=== PATIENT | female | born 1990 | race Caucasian/White ===

== ENCOUNTER 2020-09-27 12:03 | Emergency (ER) | payer SELFPAY ==
[~2020-09-27] VITALS: Ht 167.7 cm; Wt 72.5 kg
[2020-09-27 12:37] LABS: BASOPHILS # (AUTO) 0.1 10^3/uL (0.0-0.1); BASOPHILS % (AUTO) 0 % (0-10); EOSINOPHILS # (AUTO) 0.1 10^3/uL (0.0-0.3); EOSINOPHILS % (AUTO) 1 % (0-10); HEMATOCRIT 44 % (35-52); HEMOGLOBIN 14.7 g/dL (11.5-16.0); LYMPHOCYTES # (AUTO) 1.8 10^3/uL (1.0-4.0); LYMPHOCYTES % (AUTO) 13 % (12-44); MEAN CORPUSCULAR HEMOGLOBIN 32 pg (25-34); MEAN CORPUSCULAR HGB CONC 34 g/dL (32-36); MEAN CORPUSCULAR VOLUME 94 fL (80-99); MEAN PLATELET VOLUME 9.3 fL (9.0-12.2); MONOCYTES # (AUTO) 0.5 10^3/uL (0.0-1.0); MONOCYTES % (AUTO) 4 % (0-12); NEUTROPHILS # (AUTO) 11.3 10^3/uL (1.8-7.8); NEUTROPHILS % (AUTO) 81 % (42-75); PLATELET COUNT 377 10^3/uL (130-400); WHITE BLOOD COUNT 13.9 10^3/uL (4.3-11.0)
[2020-09-27] MEDS ORDERED: fentaNYL INJECTION 100 MCG/2 ML AMP IVP ONE ×2 (12:45→15:15)
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
[2020-09-27] MEDS ORDERED: HOLD METFORMIN - RECEIVED CONTRAST 20 ML VIAL IV SCH (13:15)
[2020-09-27] MEDS ORDERED: NS 100 ML (IVPB) BAG IV ONE (13:15)
[2020-09-27] MEDS ORDERED: IOHEXOL 350 MG/ML 100 ML (OMNIPAQUE 350) VIAL IV ONE (13:15)
[2020-09-27 13:18] LABS: ALANINE AMINOTRANSFERASE 37 U/L (0-55); ALBUMIN 4.5 GM/DL (3.2-4.5); ALKALINE PHOSPHATASE 78 U/L (40-136); BILIRUBIN,TOTAL 0.4 MG/DL (0.1-1.0); BUN/CREATININE RATIO 10; CARBON DIOXIDE 31 MMOL/L (21-32); CHLORIDE 106 MMOL/L (98-107); CREATININE SERUM 0.88 MG/DL (0.60-1.30); GFR ESTIMATED > 60; GLUCOSE 78 MG/DL (70-105); POTASSIUM 3.8 MMOL/L (3.6-5.0); SODIUM 138 MMOL/L (135-145); TOTAL PROTEIN 7.8 GM/DL (6.4-8.2)
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
[2020-09-27] MEDS ORDERED: ACHD5005 PO (15:21)
[2020-09-27 15:33] VITALS: BP 129/69
== END 2020-09-27 15:33 | disposition home or self-care (01) ==
LOC: ER 12:07
DX: R07.89 Other chest pain (principal); V89.2XXA Person injured in unspecified motor-vehicle accident, traffic, initial encounter
CPT/HCPCS: 36415; 71260; 80053; 84703; 85025; 93005

== ENCOUNTER 2021-03-14 12:11 | Emergency (ER) | payer SELFPAY ==
[~2021-03-14] VITALS: Ht 167.7 cm; Wt 86.0 kg
[~2021-03-14 12:11] MED LIST: ACHD5005 PO
[2021-03-14 12:19] VITALS: BP 130/69
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
== END 2021-03-14 13:18 | disposition home or self-care (01) ==
LOC: EDUNIT# 12:11 → ER 12:13
DX: M25.572 Pain in left ankle and joints of left foot (principal); F17.210 Nicotine dependence, cigarettes, uncomplicated
CPT/HCPCS: 99283

== ENCOUNTER 2021-04-25 13:01 | Emergency (ER) | payer SELFPAY ==
[~2021-04-25] VITALS: Ht 167.7 cm; Wt 88.5 kg
[2021-04-25 13:05] VITALS: BP 151/105
--- NOTE | 2021-04-25 13:26 | ED General ---
General Chief Complaint: Head/Cervical Problems Stated Complaint: MIGRAINE Source of Information: Patient Exam Limitations: No Limitations (NEGRA HORNER APRN) History of Present Illness Date Seen by Provider: Apr 25, 2021 Time Seen by Provider: 13:27 Initial Comments ER with reports of chronic headaches no worse than usual no fevers no chills no cough no shortness of breath. She also states that she has had 70 pound weight gain since last May and is worried she may be hypothyroid would like her thyroid levels checked. She just moved here from [place] and does not have primary care provider. Timing/Duration: Other Severity: Moderate Associated Systoms: Denies Symptoms (NEGRA HORNER APRN) Allergies and Home Medications Allergies Coded Allergies: No Known Drug Allergies (Unverified , 09/27/20) Home Medications Hydrocodone/Acetaminophen 1 Each Tablet, 1 EACH PO Q6H PRN for PAIN-MODERATE (5- 7) Prescribed by: NADINE MURRAY on 09/27/20 1521 Patient Home Medication List Home Medication List Reviewed: Yes (NEGRA HORNER APRN) Review of Systems Review of Systems Constitutional: see HPI, malaise EENTM: see HPI Respiratory: no symptoms reported Cardiovascular: no symptoms reported Genitourinary: no symptoms reported Musculoskeletal: no symptoms reported; No joint swelling, No muscle pain Skin: no symptoms reported Psychiatric/Neurological: No Symptoms Reported Hematologic/Lymphatic: No Symptoms Reported Immunological/Allergic: no symptoms reported (NEGRA HORNER APRN) Past Esuylpk-Pbokmk-Qouxcc Hx Seasonal Allergies Seasonal Allergies: No (NEGRA HORNER APRN) Past Medical History Surgeries: Yes ([place]) Respiratory: No Cardiac: No Neurological: No Genitourinary: No Gastrointestinal: No Musculoskeletal: No Endocrine: No HEENT: No Cancer: No Psychosocial: No Integumentary: No Blood Disorders: No (NEGRA HORNER APRN) Physical Exam Vital Signs Vital Signs - First Documented 04/25/21 13:05 Temp 37.1 Pulse 99 Resp 18 B/P (MAP) 151/105 (120) (NADINE HERNADZE MD) Vital Signs Capillary Refill : (NEGRA HORNER APRN) Height, Weight, BMI Height: '" Weight: lbs. oz. kg; 30.00 BMI Method: General Appearance: No Apparent Distress, WD/WN Eyes: Bilateral Eye Normal Inspection, Bilateral Eye PERRL, Bilateral Eye EOMI HEENT: PERRL/EOMI, TMs Normal Neck: Full Range of Motion, Normal Inspection Respiratory: No Accessory Muscle Use Cardiovascular: Regular Rate, Rhythm, Normal Peripheral Pulses Gastrointestinal: Normal Bowel Sounds, Non Tender, Soft Extremity: Normal Capillary Refill, Normal Inspection Neurologic/Psychiatric: Alert, Oriented x3 Skin: Normal Color, Warm/Dry (NEGRA HORNER APRN) Progress/Results/Core Measures Suspected Sepsis SIRS Temperature: Pulse: Respiratory Rate: Laboratory Tests 04/25/21 13:43: Blood Pressure / Mean: Laboratory Tests 04/25/21 13:43: (NEGRA HORNER APRN) Results/Orders Lab Results Laboratory Tests Test 04/25/21 13:43 Range/Units White Blood Count 9.5 4.3-11.0 10^3/uL Red Blood Count 4.63 3.80-5.11 10^6/uL Hemoglobin 14.9 11.5-16.0 g/dL Hematocrit 43 35-52 % Mean Corpuscular Volume 93 80-99 fL Mean Corpuscular Hemoglobin 32 25-34 pg Mean Corpuscular Hemoglobin Concent 35 32-36 g/dL Red Cell Distribution Width 13.5 10.0-14.5 % Platelet Count 323 130-400 10^3/uL Mean Platelet Volume 9.9 9.0-12.2 fL Immature Granulocyte % (Auto) 0 % Neutrophils (%) (Auto) 71 42-75 % Lymphocytes (%) (Auto) 20 12-44 % Monocytes (%) (Auto) 6 0-12 % Eosinophils (%) (Auto) 3 0-10 % Basophils (%) (Auto) 1 0-10 % Neutrophils # (Auto) 6.7 1.8-7.8 10^3/uL Lymphocytes # (Auto) 1.9 1.0-4.0 10^3/uL Monocytes # (Auto) 0.6 0.0-1.0 10^3/uL Eosinophils # (Auto) 0.3 0.0-0.3 10^3/uL Basophils # (Auto) 0.1 0.0-0.1 10^3/uL Immature Granulocyte # (Auto) 0.0 0.0-0.1 10^3/uL Thyroid Stimulating Hormone (TSH) 1.34 0.35-4.94 UIU/ML Free Thyroxine 1.02 0.70-1.48 NG/DL Serum Test, Qualitative NEGATIVE NEGATIVE (NADINE HERNADEZ MD) Vital Signs/I&O 04/25/21 13:05 Temp 37.1 Pulse 99 Resp 18 B/P (MAP) 151/105 (120) (NADINE HERNADEZ MD) Vital Signs/I&O Capillary Refill : (NEGRA HORNER APRN) Departure Impression Primary Impression: Chronic headaches Additional Impression: General malaise Disposition: HOME, SELF-CARE Condition: Stable Departure-Patient Inst. Decision time for Depature: 13:30 (NEGRA HORNER APRN) Referrals: NO,LOCAL PHYSICIAN (PCP/Family) Primary Care Physician Patient Instructions: NO INSTRUCTIONS GIVEN Add. Discharge Instructions: 1. Return to ER for any concerns 2. [facility] as a walk-in clinic for any future nonemergency needs. Otherwise your appointment is with LARS Martin at [facility] on May 10 at 12 PM. Your lab results from today will be faxed to them when they are resulted All discharge instructions reviewed with patient and/or family. Voiced understanding. Work/School Note: Work Release Form Date Seen in the Emergency Department: Apr 25, 2021 Return to Work: Apr 26, 2021 ATTENDING PHYSICIAN NOTE: I was physically present as attending physician in the emergency department during the care of this patient, but I was not directly involved in the decision making or delivery of care for this patient. (NADINE HERNADEZ MD) NEGRA HORNER APRN Apr 25, 2021 13:26 NADINE HERNADEZ MD Apr 25, 2021 20:38
[2021-04-25 13:51] LABS: BASOPHILS # (AUTO) 0.1 10^3/uL (0.0-0.1); BASOPHILS % (AUTO) 1 % (0-10); EOSINOPHILS # (AUTO) 0.3 10^3/uL (0.0-0.3); EOSINOPHILS % (AUTO) 3 % (0-10); HEMATOCRIT 43 % (35-52); HEMOGLOBIN 14.9 g/dL (11.5-16.0); LYMPHOCYTES # (AUTO) 1.9 10^3/uL (1.0-4.0); LYMPHOCYTES % (AUTO) 20 % (12-44); MEAN CORPUSCULAR HEMOGLOBIN 32 pg (25-34); MEAN CORPUSCULAR HGB CONC 35 g/dL (32-36); MEAN CORPUSCULAR VOLUME 93 fL (80-99); MEAN PLATELET VOLUME 9.9 fL (9.0-12.2); MONOCYTES # (AUTO) 0.6 10^3/uL (0.0-1.0); MONOCYTES % (AUTO) 6 % (0-12); NEUTROPHILS # (AUTO) 6.7 10^3/uL (1.8-7.8); NEUTROPHILS % (AUTO) 71 % (42-75); PLATELET COUNT 323 10^3/uL (130-400); WHITE BLOOD COUNT 9.5 10^3/uL (4.3-11.0)
[2021-04-25 14:27] LABS: FREE T4 (FREE THYROXINE) 1.02 NG/DL (0.70-1.48)
== END 2021-04-25 13:45 | disposition home or self-care (01) ==
LOC: EDUNIT# 13:01 → ER 13:04
DX: R51.9 Headache, unspecified (principal); R53.81 Other malaise
CPT/HCPCS: 36415; 84439; 84443; 84703; 85025

== ENCOUNTER 2022-01-30 10:23 | Emergency (ER) | payer SELFPAY ==
[~2022-01-30] VITALS: Ht 165 cm; Wt 77.0 kg
[2022-01-30 11:44] LABS: BILIRUBIN,URINE NEGATIVE (NEGATIVE); CLARITY,URINE CLEAR; COLOR,URINE YELLOW; GLUCOSE, URINE (UA) NEGATIVE (NEGATIVE); KETONES,URINE NEGATIVE (NEGATIVE); LEUKOCYTE ESTERASE ,URINE NEGATIVE (NEGATIVE); NITRITE,URINE NEGATIVE (NEGATIVE); PROTEIN,URINE NEGATIVE (NEGATIVE)
[2022-01-30] MEDS ORDERED: KETOROLAC 30 MG/ML VIAL IVP ONE (11:45)
--- NOTE | 2022-01-30 11:54 | ED GU-Female ---
General Chief Complaint: - Reproductive Stated Complaint: ABD PAIN Nursing Triage Note: Patient ambulatory to ER with c/o lower abdominal pain with urinary frequency and urgency. Pt states this began two weeks ago and got worse while camping. Source: patient Exam Limitations: no limitations History of Present Illness Date Seen by Provider: January 30, 2022 Time Seen by Provider: 11:44 Initial Comments Patient is a 31-year-old female who presents the ED with urinary symptoms, abdominal pain and left flank pain. Symptoms started about a week and a half ago. She states she went on a camping trip. Started having some burning with urination notable before urination and after. Denies frequent urination. No vaginal bleeding or vaginal discharge. Last menstrual cycle a month ago. patient Is been having intermittent sharp pain in her lower abdomen bilateral. This pain became worse this morning when she woke up and remian constant. Rates pain 9 out 10. Patient rates pain 10 out of 10. No history of previous abdominal surgery. No vaginal discharge or concern for std. Denies taking any medication at home. History of UTIs in the past however she is concerned for kidney infection. She states she has had intermittent vomiting without fever. No diarrhea, chest pain, cough, shortness of breath, headache, dizziness. Allergies and Home Medications Allergies Coded Allergies: No Known Drug Allergies (Unverified , 09/27/20) Patient Home Medication List Home Medication List Reviewed: Yes Hydrocodone/Acetaminophen (Hydrocodone-Acetamin 5-325 mg) 1 Each Tablet, 1 EACH PO Q6H PRN for PAIN-MODERATE (5-7) Prescribed by: NADINE MURRAY on 09/27/20 1521 Review of Systems Review of Systems Constitutional: No chills, No diaphoresis, No fever, No malaise, No weakness EENTM: No hearing loss, No double vision, No vision loss, No hoarseness, No mouth pain, No mouth swelling Respiratory: No cough, No dyspnea on exertion, No hemoptysis, No orthopnea, No short of breath Cardiovascular: No chest pain, No edema Gastrointestinal: abdominal pain; No diarrhea; nausea, vomiting Genitourinary: burning Musculoskeletal: back pain; No joint pain Past Mmllfxo-Vejblt-Tqsgnx Hx Patient Social History Tobacco Use?: No Smoking Status: Never a Smoker Smokeless Tobacco Frequency: Never a User Use of E-Cig and/or Vaping dev: No Use of E-Cig and/or Vaping Moises: Never a User Substance use?: No Alcohol Use?: No Pt feels they are or have been: No Immunizations Up To Date Influenza Vaccine Up-to-Date: No; Not Current Seasonal Allergies Seasonal Allergies: No Past Medical History Surgery/Hospitalization HX: LEEP procedure Surgeries: Yes (LEEP) Respiratory: No Cardiac: No Neurological: No Last Menstrual Period: Jan 02, 2022 Genitourinary: No Gastrointestinal: No Musculoskeletal: No Endocrine: No HEENT: No Cancer: No Psychosocial: No Integumentary: No Blood Disorders: No Physical Exam Vital Signs Vital Signs - First Documented 01/30/22 11:01 Temp 35.5 Pulse 104 Resp 18 B/P (MAP) 137/84 (101) Pulse Ox 100 O2 Delivery Room Air Capillary Refill : Less Than 3 Seconds Height, Weight, BMI Height: '" Weight: lbs. oz. kg; 28.00 BMI Method: General Appearance: No WD/WN, No no apparent distress HEENT: No PERRL/EOMI, No normal ENT inspection, No TMs normal, No pharynx normal Neck: No non-tender, No full range of motion, No normal inspection Cardiovascular: No regular rate, rhythm, No no edema, No no gallop, No no JVD Respiratory: No chest non-tender, No lungs clear, No normal breath sounds Gastrointestinal: normal bowel sounds, soft, no organomegaly, no pulsatile mass, tenderness (biLateral lower abdominal tenderness, left flank tenderness.) Back: normal inspection, CVA tenderness (L) Extremities: normal range of motion, non-tender, normal inspection Progress/Results/Core Measures Suspected Sepsis SIRS Temperature: Pulse: 104 Respiratory Rate: 18 Laboratory Tests 01/30/22 11:55: White Blood Count 13.8H Blood Pressure 137 /84 Mean: 101 Laboratory Tests 01/30/22 11:55: Creatinine 0.81, Platelet Count 333, Total Bilirubin 0.5 Results/Orders Lab Results Laboratory Tests Test 01/30/22 11:09 01/30/22 11:55 Range/Units Urine Color YELLOW Urine Clarity CLEAR Urine pH 7.0 5-9 Urine Specific [place] 1.010 L 1.016-1.022 Urine Protein NEGATIVE NEGATIVE Urine Glucose (UA) NEGATIVE NEGATIVE Urine Ketones NEGATIVE NEGATIVE Urine Nitrite NEGATIVE NEGATIVE Urine Bilirubin NEGATIVE NEGATIVE Urine Urobilinogen 0.2 < = 1.0 MG/DL Urine Leukocyte Esterase NEGATIVE NEGATIVE Urine RBC (Auto) TRACE-I H NEGATIVE Urine RBC RARE /HPF Urine WBC RARE /HPF Urine Squamous Epithelial Cells 2-5 /HPF Urine Crystals NONE /LPF Urine Bacteria TRACE /HPF Urine Casts NONE /LPF Urine Mucus NEGATIVE /LPF Urine Culture Indicated NO Urine Test POSITIVE NEGATIVE White Blood Count 13.8 H 4.3-11.0 10^3/uL Red Blood Count 5.55 H 3.80-5.11 10^6/uL Hemoglobin 16.9 H 11.5-16.0 g/dL Hematocrit 49 35-52 % Mean Corpuscular Volume 89 80-99 fL Mean Corpuscular Hemoglobin 31 25-34 pg Mean Corpuscular Hemoglobin Concent 34 32-36 g/dL Red Cell Distribution Width 14.1 10.0-14.5 % Platelet Count 333 130-400 10^3/uL Mean Platelet Volume 9.9 9.0-12.2 fL Immature Granulocyte % (Auto) 0 % Neutrophils (%) (Auto) 82 H 42-75 % Lymphocytes (%) (Auto) 11 L 12-44 % Monocytes (%) (Auto) 5 0-12 % Eosinophils (%) (Auto) 1 0-10 % Basophils (%) (Auto) 1 0-10 % Neutrophils # (Auto) 11.4 H 1.8-7.8 10^3/uL Lymphocytes # (Auto) 1.6 1.0-4.0 10^3/uL Monocytes # (Auto) 0.7 0.0-1.0 10^3/uL Eosinophils # (Auto) 0.1 0.0-0.3 10^3/uL Basophils # (Auto) 0.1 0.0-0.1 10^3/uL Immature Granulocyte # (Auto) 0.1 0.0-0.1 10^3/uL Sodium Level 137 135-145 MMOL/L Potassium Level 4.0 3.6-5.0 MMOL/L Chloride Level 102 98-107 MMOL/L Carbon Dioxide Level 23 21-32 MMOL/L Anion Gap 12 5-14 MMOL/L Blood Urea Nitrogen 7 7-18 MG/DL Creatinine 0.81 0.60-1.30 MG/DL Estimat Glomerular Filtration Rate 99 BUN/Creatinine Ratio 9 Glucose Level 99 70-105 MG/DL Calcium Level 10.1 8.5-10.1 MG/DL Corrected Calcium 8.5-10.1 MG/DL Total Bilirubin 0.5 0.1-1.0 MG/DL Aspartate Amino Transf (AST/SGOT) 43 H 5-34 U/L Alanine Aminotransferase (ALT/SGPT) 81 H 0-55 U/L Alkaline Phosphatase 81 40-136 U/L Total Protein 8.5 H 6.4-8.2 GM/DL Albumin 5.1 H 3.2-4.5 GM/DL Lipase 21 8-78 U/L Human Chorionic Gonadotropin, Quant 18530 H <5 MIU/ML My Orders Orders - KELLY BOUCHER Ua Culture If Indicated (01/30/22 11:36) Hcg,Qualitative Urine (01/30/22 11:36) Cbc With Automated Diff (01/30/22 11:43) Comprehensive Metabolic Panel (01/30/22 11:43) Lipase (01/30/22 11:43) Ketorolac Injection (Toradol Injection) (01/30/22 11:45) Us Ob<14 Wks Sngle W/Transvag (01/30/22 12:32) Abo Rh Type (01/30/22 12:38) Hcg,Quantitative (01/30/22 12:38) Neis Sammy Dna Urine Test (01/30/22 12:48) Chlamydia Trachomatis Urine (01/30/22 12:48) Acetaminophen Tablet (Tylenol Tablet) (01/30/22 14:30) Fentanyl Inj (Sublimaze Injection) (01/30/22 14:47) Medications Given in ED Current Medications Medications Dose Ordered Sig/Delmi Route Start Time Stop Time Status Last Admin Dose Admin Acetaminophen 1,000 mg ONCE ONCE PO 01/30/22 14:30 01/30/22 14:31 DC 01/30/22 14:33 1,000 MG Ketorolac Tromethamine 30 mg ONCE ONCE IVP 01/30/22 11:45 01/30/22 11:46 DC 01/30/22 11:55 30 MG Vital Signs/I&O 01/30/22 01/30/22 11:01 15:16 Temp 35.5 Pulse 104 72 Resp 18 16 B/P (MAP) 137/84 (101) 140/67 Pulse Ox 100 97 O2 Delivery Room Air Room Air Capillary Refill : Less Than 3 Seconds Blood Pressure Mean: 101 Departure Communication (PCP) Patient presents ED with lower abdominal discomfort and left flank pain. She states she has urinary symptoms right before urination and after described as more burning. No vomiting or diarrhea. Patient eventually mentioned that she had a positive test at home concern for possible . She was positive here. Urinalysis without evidence of infection. Denies any vaginal bleeding or vaginal discharge. B positive ABO. Refused pelvic exam. Discussed potential pelvic infection could be result of her symptoms especially with a urinary since her urine is normal. Patient with stable blood pressure. No history of diabetes or HTN. Slight elevated white blood count and hemoglobin. Normal kidney function. Slight elevated liver enzymes. She has no right upper quadrant or right lower quadrant tenderness. More of her pain appears to be in her left upper quadrant during palpation. She had a normal lipase. No chest pain, shortness of breath or cough. Patient was initially given Toradol before her test return and before she told she had a positive test after I asked her if she was initially. Patient beta quant 19,000. Ultrasound shows gestational sac without pole. Possible blighted OVUM versus early . Will need further serial beta quant's and ultrasound. Patient scheduled follow-up with her [employer] in [place] next week. She travels back and forth. Patient was requesting stronger pain medication. Discussed risk with narcotics. She acknowledges. She was given fentanyl here. Pain improved. Patient is recommend prenatals. She is G2, P1. Not concern for sexual transmitted infection but urine is currently pending for chlamydia and gonorrhea. Once again reevaluation of the abdomen without any right lower quadrant or right upper quadrant tenderness. Appears to be more on the left side of her abdomen but much improved after pain medication. She did have a left ovarian cyst noted on ultrasound. If any worsening symptoms strongly recommend returning back to ED. She is scheduled to return to [place] on . Impression Primary Impression: Disposition: HOME, SELF-CARE Condition: Stable Departure-Patient Inst. Decision time for Depature: 15:07 Referrals: NO,LOCAL PHYSICIAN (PCP/Family) Primary Care Physician Patient Instructions: Care Add. Discharge Instructions: Recommend following up with your [employer]. If any worsening pain to return back to ED for further evaluation. Tylenol for pain. Recommend prenatals. Beta quant 19 284 All discharge instructions reviewed with patient and/or family. Voiced understanding. KELLY BOUCHER January 30, 2022 11:54
[2022-01-30 12:01] LABS: BASOPHILS # (AUTO) 0.1 10^3/uL (0.0-0.1); BASOPHILS % (AUTO) 1 % (0-10); EOSINOPHILS # (AUTO) 0.1 10^3/uL (0.0-0.3); EOSINOPHILS % (AUTO) 1 % (0-10); HEMATOCRIT 49 % (35-52); HEMOGLOBIN 16.9 g/dL (11.5-16.0); LYMPHOCYTES # (AUTO) 1.6 10^3/uL (1.0-4.0); LYMPHOCYTES % (AUTO) 11 % (12-44); MEAN CORPUSCULAR HEMOGLOBIN 31 pg (25-34); MEAN CORPUSCULAR HGB CONC 34 g/dL (32-36); MEAN CORPUSCULAR VOLUME 89 fL (80-99); MEAN PLATELET VOLUME 9.9 fL (9.0-12.2); MONOCYTES # (AUTO) 0.7 10^3/uL (0.0-1.0); MONOCYTES % (AUTO) 5 % (0-12); NEUTROPHILS # (AUTO) 11.4 10^3/uL (1.8-7.8); NEUTROPHILS % (AUTO) 82 % (42-75); PLATELET COUNT 333 10^3/uL (130-400); WHITE BLOOD COUNT 13.8 10^3/uL (4.3-11.0)
[2022-01-30 12:13] LABS: BACTERIA,URINE TRACE /HPF; RBC,URINE RARE /HPF; WBC,URINE RARE /HPF
[2022-01-30 12:26] LABS: ALBUMIN 5.1 GM/DL (3.2-4.5); CHLORIDE 102 MMOL/L (98-107); SODIUM 137 MMOL/L (135-145)
[2022-01-30 12:27] LABS: CALCIUM 10.1 MG/DL (8.5-10.1)
[2022-01-30 12:28] LABS: GLUCOSE 99 MG/DL (70-105); TOTAL PROTEIN 8.5 GM/DL (6.4-8.2)
[2022-01-30 12:29] LABS: CARBON DIOXIDE 23 MMOL/L (21-32)
[2022-01-30 12:30] LABS: BILIRUBIN,TOTAL 0.5 MG/DL (0.1-1.0)
[2022-01-30] MEDS ORDERED: IOHEXOL 350 MG/ML 100 ML (OMNIPAQUE 350) VIAL IV ONE (12:30)
[2022-01-30] MEDS ORDERED: HOLD METFORMIN - RECEIVED CONTRAST 20 ML VIAL IV SCH (12:30)
[2022-01-30] MEDS ORDERED: NS 100 ML (IVPB) BAG IV ONE (12:30)
[2022-01-30] MEDS ORDERED: CATHETER FLUSH 10 ML SYR IV PRN (12:30)
[2022-01-30 12:32] LABS: ALKALINE PHOSPHATASE 81 U/L (40-136); CREATININE SERUM 0.81 MG/DL (0.60-1.30); GFR ESTIMATED 99
[2022-01-30 12:33] LABS: BUN/CREATININE RATIO 9
[2022-01-30 12:35] LABS: ALANINE AMINOTRANSFERASE 81 U/L (0-55); LIPASE 21 U/L (8-78)
[2022-01-30] MEDS ORDERED: ACETAMINOPHEN 500 MG TAB (TYLENOL) PO ONE (14:30)
[2022-01-30] MEDS ORDERED: fentaNYL INJ 100 MCG/2 ML AMP IVP STA (14:47)
--- NOTE | 2022-01-30 14:52 | Diagnostic Imaging Report ---
INDICATION: Abdominal pain. FINDINGS: Uterus measures 7.2 x 4.7 x 5.3 cm. There is an intrauterine gestational sac present consistent with approximately 6 weeks 1 day gestation. The gestational sac is in the right aspect of the uterine fundus. Asymmetric location of the gestational sac may be owing to a uterine anomaly such as a septate or sub-septate uterus with a gestational sac located in the right-sided endometrium. There is no evidence of a pole within the gestational sac. There is a small amount of perigestational sac fluid measuring 2.4 x 0.4 x 1.1 cm suggestive of some perigestational sac hemorrhage. Adnexal evaluation demonstrates a left ovarian cystic lesion measuring 2.9 x 1.5 x 1.7 cm. No free fluid in the pelvis is seen. IMPRESSION: 1. 6 weeks 1 day intrauterine gestational sac without evidence of pole. While this could be owing to very early gestation, possibility of blighted ovum cannot be entirely excluded. Correlation with serial beta hCG levels and/or follow-up ultrasound would be recommended. There is a small perigestational sac hemorrhage present. 2. Left ovarian cyst. Dictated by: Dictated on workstation # [id number]
[2022-01-30 15:16] VITALS: BP 140/67
== END 2022-01-30 15:17 | disposition home or self-care (01) ==
LOC: EDUNIT# 10:23 → ER 10:25
DX: R10.31 Right lower quadrant pain (principal); R10.32 Left lower quadrant pain; R39.198 Other difficulties with micturition; Z32.01 Encounter for pregnancy test, result positive
CPT/HCPCS: 36415; 76801; 76817; 80053; 81000; 83690; 84702; 84703; 85025; 86900; 86901; 87491; 87591

== ENCOUNTER 2023-07-08 06:09 | Emergency (ER) | payer SELFPAY ==
[~2023-07-08] VITALS: Ht 167 cm; Wt 77.0 kg
[2023-07-08] MEDS ORDERED: HYDROcodone/ACETAMINOPHEN 5 MG/325 MG TABLET PO ONE (06:45)
[2023-07-08] MEDS ORDERED: KETOROLAC INJ 30 MG/ML VIAL IM STA (06:45)
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
[2023-07-08] MEDS ORDERED: IBUP-1780 PO (07:47)
[2023-07-08] MEDS ORDERED: ACHD5005 PO ×3 (07:47→18:40)
[2023-07-08] MEDS ORDERED: CYCL10TA25 PO (07:47)
[2023-07-08 08:20] VITALS: BP 152/83
== END 2023-07-08 08:20 | disposition home or self-care (01) ==
LOC: EDUNIT# 06:09 → ER 06:11
DX: S80.01XA Contusion of right knee, initial encounter (principal); V43.92XA Unspecified car occupant injured in collision with other type car in traffic accident, initial encounter; Y92.410 Unspecified street and highway as the place of occurrence of the external cause
CPT/HCPCS: 73562; 73700

== ENCOUNTER 2023-07-16 00:05 | Inpatient (IN) | payer SELFPAY ==
[~2023-07-16] VITALS: Ht 167.7 cm; Wt 88.3 kg
[~2023-07-16 00:05] MED LIST changes: +CYCL10TA25 PO; +IBUP-1780 PO
[2023-07-16 01:29] LABS: BASOPHILS # (AUTO) 0.1 10^3/uL (0.0-0.1); BASOPHILS % (AUTO) 0 % (0-10); EOSINOPHILS # (AUTO) 0.1 10^3/uL (0.0-0.3); EOSINOPHILS % (AUTO) 0 % (0-10); HEMATOCRIT 42 % (35-52); HEMOGLOBIN 14.6 g/dL (11.5-16.0); LYMPHOCYTES # (AUTO) 1.6 10^3/uL (1.0-4.0); LYMPHOCYTES % (AUTO) 8 % (12-44); MEAN CORPUSCULAR HEMOGLOBIN 32 pg (25-34); MEAN CORPUSCULAR HGB CONC 35 g/dL (32-36); MEAN CORPUSCULAR VOLUME 94 fL (80-99); MONOCYTES # (AUTO) 0.8 10^3/uL (0.0-1.0); MONOCYTES % (AUTO) 4 % (0-12); NEUTROPHILS # (AUTO) 17.2 10^3/uL (1.8-7.8); NEUTROPHILS % (AUTO) 87 % (42-75); PLATELET COUNT 341 10^3/uL (130-400); WHITE BLOOD COUNT 19.8 10^3/uL (4.3-11.0)
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
[2023-07-16 01:34] LABS: BACTERIA,URINE NEGATIVE /HPF; BILIRUBIN,URINE NEGATIVE (NEGATIVE); CLARITY,URINE CLEAR; COLOR,URINE YELLOW; GLUCOSE, URINE (UA) NEGATIVE (NEGATIVE); KETONES,URINE NEGATIVE (NEGATIVE); LEUKOCYTE ESTERASE ,URINE NEGATIVE (NEGATIVE); NITRITE,URINE NEGATIVE (NEGATIVE); PH,URINE 5.5 (5-9); PROTEIN,URINE NEGATIVE (NEGATIVE); SQUAMOUS EPITHELIAL CELL,UR 0-2 /HPF
[2023-07-16 01:40] LABS: AMPHETAMINE SCREEN, URINE NEGATIVE (NEGATIVE); BARBITURATE SCREEN URINE NEGATIVE (NEGATIVE); CANNABINOID SCREEN, URINE POSITIVE (NEGATIVE); COCAINE SCREEN URINE NEGATIVE (NEGATIVE); OPIATE SCREEN URINE POSITIVE (NEGATIVE)
[2023-07-16 01:41] LABS: METHADONE STAT NEGATIVE (NEGATIVE); OXYCODONE STAT NEGATIVE (NEGATIVE); PROPOXYPHENE STAT NEGATIVE (NEGATIVE); TRICYCLIC ANTIDEPRESSANTS SCRE NEGATIVE (NEGATIVE)
[2023-07-16 01:41] LABS: ALBUMIN 4.6 GM/DL (3.2-4.5); CHLORIDE 104 MMOL/L (98-107)
[2023-07-16 01:42] LABS: SODIUM 136 MMOL/L (135-145)
[2023-07-16 01:43] LABS: CALCIUM 9.5 MG/DL (8.5-10.1)
[2023-07-16 01:44] LABS: GLUCOSE 108 MG/DL (70-105); TOTAL PROTEIN 8.3 GM/DL (6.4-8.2)
[2023-07-16 01:45] LABS: CARBON DIOXIDE 19 MMOL/L (21-32)
[2023-07-16] MEDS ORDERED: KETOROLAC INJ 30 MG/ML VIAL IVP ONE (01:45)
[2023-07-16 01:46] LABS: BILIRUBIN,TOTAL 0.4 MG/DL (0.1-1.0)
[2023-07-16 01:47] LABS: ALKALINE PHOSPHATASE 90 U/L (40-136)
[2023-07-16 01:48] LABS: CREATININE SERUM 0.78 MG/DL (0.60-1.30); GFR ESTIMATED 103
[2023-07-16 01:49] LABS: BUN/CREATININE RATIO 12
[2023-07-16 01:50] LABS: ALANINE AMINOTRANSFERASE 91 U/L (0-55)
[2023-07-16 01:51] LABS: ERYTHROCYTE SEDIMENTATION RATE 23 MM/HR (0-20); LYMPHOCYTES % (MANUAL) 15 %; MONOCYTES % (MANUAL) 3 %; NEUTROPHILS % (MANUAL) 82 %; RBC MORPH NORMAL
[2023-07-16] MEDS ORDERED: PIPERACILLIN/Tazobactam 4.5 GM in NS (IVPB) 100 ML 100 ML IV ONE (02:00)
[2023-07-16] MEDS ORDERED: LACTATED RINGERS 1,000 ML 1,000 ML IV ONE (02:15)
[2023-07-16] MEDS: VANCOMYCIN INJECTION 1,000 MG in NS (IVPB) 250 ML 250 ML IV SCH ×2 (02:45→03:56)
[2023-07-16] MEDS ORDERED: fentaNYL INJECTION 100 MCG/2 ML VIAL IVP ONE (04:30)
[2023-07-16 05:39] VITALS: BP 135/67
[2023-07-16] MEDS: LACTATED RINGERS 1,000 ML 1,000 ML IV SCH ×4 (06:15→20:21)
[2023-07-16] MEDS ORDERED: ONDANSETRON INJECTION 4 MG/2 ML (SDV) IV PRN (06:15)
[2023-07-16] MEDS: fentaNYL INJECTION 100 MCG/2 ML VIAL IV PRN ×6 (06:24→22:11)
[2023-07-16] MEDS: ACETAMINOPHEN 500 MG TABLET PO PRN ×2 (07:34→13:01)
[2023-07-16] MEDS: KETOROLAC INJ 30 MG/ML VIAL IV PRN ×3 (07:34→20:20)
[2023-07-16] MEDS: PIPERACILLIN/Tazobactam 4.5 GM in NS (IVPB) 100 ML 100 ML IV SCH ×2 (07:35→15:43)
[2023-07-16] MEDS ORDERED: CATHETER FLUSH 10 ML SYR IVP PRN (07:45)
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
[2023-07-16 07:47] VITALS: BP 113/69
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
[2023-07-16 11:33] VITALS: BP 116/66
[2023-07-16] MEDS ORDERED: IBUP-1780 PO (11:56)
[2023-07-16] MEDS ORDERED: CYCL10TA25 PO (11:56)
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
[2023-07-16 15:32] VITALS: BP 129/72
[2023-07-16] MEDS: HYDROcodone/ACETAMINOPHEN 5 MG/325 MG TABLET PO PRN ×2 (16:21→22:05)
[2023-07-16] MEDS: VANCOMYCIN 1250 MG/NS 250 ML PREMIX IV SCH (17:13)
[2023-07-16 20:21] VITALS: BP 129/79
[2023-07-16 23:09] VITALS: BP 134/91
[2023-07-17] MEDS: PIPERACILLIN/Tazobactam 4.5 GM in NS (IVPB) 100 ML 100 ML IV SCH ×3 (01:44→17:39)
[2023-07-17] MEDS: LACTATED RINGERS 1,000 ML 1,000 ML IV SCH ×2 (03:16→16:05)
[2023-07-17] MEDS: HYDROcodone/ACETAMINOPHEN 5 MG/325 MG TABLET PO PRN (03:17)
[2023-07-17] MEDS: KETOROLAC INJ 30 MG/ML VIAL IV PRN (03:17)
[2023-07-17 03:43] VITALS: BP 128/89
[2023-07-17] MEDS: VANCOMYCIN 1250 MG/NS 250 ML PREMIX IV SCH ×2 (05:10→17:40)
[2023-07-17] MEDS: fentaNYL INJECTION 100 MCG/2 ML VIAL IV PRN ×5 (05:20→18:18)
[2023-07-17 05:56] LABS: BASOPHILS % (AUTO) 0 % (0-10); EOSINOPHILS # (AUTO) 0.1 10^3/uL (0.0-0.3); EOSINOPHILS % (AUTO) 2 % (0-10); HEMATOCRIT 36 % (35-52); HEMOGLOBIN 12.2 g/dL (11.5-16.0); LYMPHOCYTES # (AUTO) 2.4 10^3/uL (1.0-4.0); LYMPHOCYTES % (AUTO) 29 % (12-44); MEAN CORPUSCULAR HEMOGLOBIN 32 pg (25-34); MEAN CORPUSCULAR HGB CONC 34 g/dL (32-36); MEAN CORPUSCULAR VOLUME 95 fL (80-99); MEAN PLATELET VOLUME 10.1 fL (9.0-12.2); MONOCYTES # (AUTO) 0.4 10^3/uL (0.0-1.0); MONOCYTES % (AUTO) 5 % (0-12); NEUTROPHILS # (AUTO) 5.3 10^3/uL (1.8-7.8); NEUTROPHILS % (AUTO) 64 % (42-75); PLATELET COUNT 277 10^3/uL (130-400); WHITE BLOOD COUNT 8.3 10^3/uL (4.3-11.0)
[2023-07-17 06:11] LABS: ALBUMIN 3.5 GM/DL (3.2-4.5); BILIRUBIN,TOTAL 0.5 MG/DL (0.1-1.0); CALCIUM 8.3 MG/DL (8.5-10.1); CREATININE SERUM 0.79 MG/DL (0.60-1.30); POTASSIUM 3.6 MMOL/L (3.6-5.0)
[2023-07-17 07:36] VITALS: BP 129/86
[2023-07-17 11:21] VITALS: BP 133/83
[2023-07-17] MEDS ORDERED: HYDROcodone/ACETAMINOPHEN 10/325 TABLET PO PRN (11:45)
[2023-07-17] MEDS ORDERED: ACHYD1T PO (12:47)
--- NOTE | 2023-07-17 13:00 | Discharge Inst-Simple/Standard ---
Discharge Inst-Standard Discharge Medications New, Converted or Re-Newed RX: Transmitted to Pharmacy Patient Instructions/Follow Up Plan of Care/Instructions/FU: Please continue to take your medications as written. Please follow up with Dr Viera as scheduled to follow up this hospital stay. Activity as Tolerated: Yes Discharge Diet: No Restrictions Return to The Hospital For: Fever, worsening redness or drainage, pain, chest pain, shortness of breath, weakness, if you feel you are getting worse. VENANCIO SERVIN MD Jul 17, 2023 12:49
[2023-07-17] MEDS ORDERED: SULF-221 PO (13:01)
--- NOTE | 2023-07-17 13:01 | Diagnostic Imaging Report ---
PROCEDURE: US right lower extremity venous. TECHNIQUE: Multiple real-time grayscale images were obtained over the right lower extremity in various projections. Additional spectral analysis and color Doppler duplex images were also obtained. INDICATION: Right lower extremity injury with the right leg pain and edema. FINDINGS: There is no evidence of right lower extremity DVT. Right lower extremity deep venous system shows normal compressibility with normal response to augmentation and Valsalva. No fluid collection or mass is detected. IMPRESSION: No evidence of right lower extremity DVT. Dictated by: Dictated on workstation # [id number]
--- NOTE | 2023-07-17 13:05 | Discharge Summary ---
Diagnosis/Chief Complaint Date of Admission Jul 16, 2023 at 05:10 Date of Discharge Discharge Date: Jul 17, 2023 Admission Diagnosis Right knee infection Primary Care No,Local Physician Discharge Diagnosis (1) wound infection of right kne (2) Hematoma and contusion Status: Acute (3) Traumatic hematoma of right knee Status: Acute Discharge Summary Discharge Physical Exam Allergies: Coded Allergies: No Known Drug Allergies (Unverified , 09/27/20) Vitals & I&Os Vital Signs Date Time Temp Pulse Resp B/P (MAP) Pulse Ox O2 Delivery O2 Flow Rate FiO2 07/17/23 11:21 36.4 83 16 133/83 (100) 96 Room Air Hospital Course Labs (last 24 hrs) Laboratory Tests 07/17/23 05:25: White Blood Count 8.3, Red Blood Count 3.83, Hemoglobin 12.2, Hematocrit 36, Mean Corpuscular Volume 95, Mean Corpuscular Hemoglobin 32, Mean Corpuscular Hemoglobin Concent 34, Red Cell Distribution Width 13.8, Platelet Count 277, Mean Platelet Volume 10.1, Immature Granulocyte % (Auto) 1, Neutrophils (%) (Auto) 64, Lymphocytes (%) (Auto) 29, Monocytes (%) (Auto) 5, Eosinophils (%) (Auto) 2, Basophils (%) (Auto) 0, Neutrophils # (Auto) 5.3, Lymphocytes # (Auto) 2.4, Monocytes # (Auto) 0.4, Eosinophils # (Auto) 0.1, Basophils # (Auto) 0.0, Immature Granulocyte # (Auto) 0.0, Sodium Level 138, Potassium Level 3.6, Chloride Level 108H, Carbon Dioxide Level 21, Anion Gap 9, Blood Urea Nitrogen 11, Creatinine 0.79, Estimat Glomerular Filtration Rate 102, BUN/Creatinine Ratio 14, Glucose Level 108H, Calcium Level 8.3L, Corrected Calcium 8.7, Total Bilirubin 0.5, Aspartate Amino Transf (AST/SGOT) 45H, Alanine Aminotransferase (ALT/SGPT) 67H, Alkaline Phosphatase 72, Total Protein 6.0L, Albumin 3.5 Patient resulted labs reviewed. Pending Labs Laboratory Tests 07/17/23 05:25: White Blood Count 8.3, Red Blood Count 3.83, Hemoglobin 12.2, Hematocrit 36, Mean Corpuscular Volume 95, Mean Corpuscular Hemoglobin 32, Mean Corpuscular Hemoglobin Concent 34, Red Cell Distribution Width 13.8, Platelet Count 277, Mean Platelet Volume 10.1, Immature Granulocyte % (Auto) 1, Neutrophils (%) (Auto) 64, Lymphocytes (%) (Auto) 29, Monocytes (%) (Auto) 5, Eosinophils (%) (Auto) 2, Basophils (%) (Auto) 0, Neutrophils # (Auto) 5.3, Lymphocytes # (Auto) 2.4, Monocytes # (Auto) 0.4, Eosinophils # (Auto) 0.1, Basophils # (Auto) 0.0, Immature Granulocyte # (Auto) 0.0, Sodium Level 138, Potassium Level 3.6, Chloride Level 108, Carbon Dioxide Level 21, Anion Gap 9, Blood Urea Nitrogen 11, Creatinine 0.79, Estimat Glomerular Filtration Rate 102, BUN/Creatinine Ratio 14, Glucose Level 108, Calcium Level 8.3, Corrected Calcium 8.7, Total Bilirubin 0.5, Aspartate Amino Transf (AST/SGOT) 45, Alanine Aminotransferase (ALT/SGPT) 67, Alkaline Phosphatase 72, Total Protein 6.0, Albumin 3.5 Imaging: Reviewed Imaging Report Discharge Home Medications: Active Scripts Active Bactrim Ds Tablet (Sulfamethoxazole/Trimethoprim) 800 Mg-160 Mg Tablet 1 Each PO BID HYDROcodone/APAP 10/325 TABLET (Acetaminophen/Hydrocodone Bitart) 1 Ea Tab 1 Ea PO Q4H PRN Reported Cyclobenzaprine HCl 10 Mg Tablet 10 Mg PO Q8H PRN Ibuprofen 800 Mg Tablet 800 Mg PO Q8H PRN Instructions to patient/family Please see electronic discharge instructions given to patient. VENANCIO SERVIN MD Jul 17, 2023 13:05
[2023-07-17 16:05] VITALS: BP 138/65
[2023-07-17 18:32] VITALS: BP 138/65
== END 2023-07-17 18:32 | disposition home or self-care (01) | DRG 872 ==
LOC: EDUNIT# 00:05 → ER 00:08 → 4TH 05:10
PROVIDERS: ADMIT Internal Medicine; ATTEND Internal Medicine
DX: A41.9 Sepsis, unspecified organism (principal); L03.115 Cellulitis of right lower limb; S83.411A Sprain of medial collateral ligament of right knee, initial encounter; S81.001A Unspecified open wound, right knee, initial encounter; S80.01XA Contusion of right knee, initial encounter; F10.129 Alcohol abuse with intoxication, unspecified; F12.90 Cannabis use, unspecified, uncomplicated; Y90.4 Blood alcohol level of 80-99 mg/100 ml; V49.9XXA Car occupant (driver) (passenger) injured in unspecified traffic accident, initial encounter; F17.210 Nicotine dependence, cigarettes, uncomplicated
CPT/HCPCS: 36415; 73700; 80053; 80306; 80320; 81000; 83605; 84703; 85007; 85025; 85027; 85652; 86141; 87040; 96365; 96375

== ENCOUNTER → 2023-07-31 | Outpatient (CLI) | payer OTHER ==
[~2023-07-31] MED LIST changes: +ACHYD1T PO; +SULF-221 PO
== END ==
LOC: ORTHO 10:59
PROVIDERS: ATTEND Orthopaedic Surgery
DX: M25.561 Pain in right knee (principal)
CPT/HCPCS: 99203

== ENCOUNTER → 2023-08-08 | Outpatient (CLI) | payer OTHER ==
--- NOTE | 2023-08-08 13:14 | Diagnostic Imaging Report ---
HISTORY: Right knee pain. COMPARISON: 07/16/2023 TECHNIQUE: Multiplanar multisequence noncontrast MRI examination of the right knee FINDINGS: No acute fracture is seen in the right knee. Alignment is normal. There is a small right knee joint effusion. The articular cartilage in the patellofemoral compartment is intact. The articular cartilage in the medial and lateral compartments appears intact. The medial and lateral menisci are intact. The anterior and posterior cruciate ligaments are intact. The medial collateral ligament is intact. The lateral collateral ligamentous complex is intact. The extensor mechanism is intact. The medial and lateral retinacula appear intact. There is a large subcutaneous fluid collection along the anteromedial aspect of the left knee, extending into the leg and thigh. This measures up to 7.5 x 2.5 cm on axial imaging, and at least 14.7 cm craniocaudal. There is edema partially seen in the vastus lateralis and medialis musculature. IMPRESSION: 1. Large subcutaneous fluid collection at the anteromedial aspect of the knee, most likely a hematoma. A Moore Alina lesion is not excluded. 2. Grade 1 strains of the vastus lateralis and vastus medialis musculature. 3. Small right knee joint effusion. 4. No acute osseous abnormalities. No meniscus or ligament tear. Dictated by: Dictated on workstation # [id number]
== END ==
LOC: RAD 09:50
PROVIDERS: ATTEND Orthopaedic Surgery
DX: M25.461 Effusion, right knee (principal); M25.561 Pain in right knee
CPT/HCPCS: 73721

== ENCOUNTER → 2023-08-13 | Outpatient (CLI) | payer OTHER | LOC: ORTHO 14:33 | PROVIDERS: ATTEND Orthopaedic Surgery | DX: S80.01XA Contusion of right knee, initial encounter (principal); X58.XXXA Exposure to other specified factors, initial encounter | CPT/HCPCS: 99213 ==

== ENCOUNTER 2023-08-28 15:45 | Emergency (ER) | payer OTHER ==
[~2023-08-28] VITALS: Ht 167.7 cm; Wt 86.1 kg
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
[2023-08-28 16:25] LABS: BASOPHILS # (AUTO) 0.1 10^3/uL (0.0-0.1); BASOPHILS % (AUTO) 0 % (0-10); EOSINOPHILS # (AUTO) 0.1 10^3/uL (0.0-0.3); EOSINOPHILS % (AUTO) 1 % (0-10); HEMATOCRIT 48 % (35-52); HEMOGLOBIN 16.3 g/dL (11.5-16.0); LYMPHOCYTES # (AUTO) 2.2 10^3/uL (1.0-4.0); LYMPHOCYTES % (AUTO) 15 % (12-44); MEAN CORPUSCULAR HEMOGLOBIN 33 pg (25-34); MEAN CORPUSCULAR HGB CONC 34 g/dL (32-36); MEAN CORPUSCULAR VOLUME 96 fL (80-99); MEAN PLATELET VOLUME 10.4 fL (9.0-12.2); MONOCYTES # (AUTO) 0.6 10^3/uL (0.0-1.0); MONOCYTES % (AUTO) 4 % (0-12); NEUTROPHILS # (AUTO) 11.3 10^3/uL (1.8-7.8); NEUTROPHILS % (AUTO) 79 % (42-75); PLATELET COUNT 305 10^3/uL (130-400); WHITE BLOOD COUNT 14.3 10^3/uL (4.3-11.0)
[2023-08-28 16:44] LABS: ALBUMIN 4.7 GM/DL (3.2-4.5); CHLORIDE 106 MMOL/L (98-107); POTASSIUM 4.3 MMOL/L (3.6-5.0); SODIUM 137 MMOL/L (135-145)
[2023-08-28 16:45] LABS: BAND NEUTROPHILS 0 %; BASOPHILS % (MANUAL) 0 %; CALCIUM 9.7 MG/DL (8.5-10.1); EOSINOPHILS % (MANUAL) 0 %; LYMPHOCYTES % (MANUAL) 15 %; MONOCYTES % (MANUAL) 2 %; NEUTROPHILS % (MANUAL) 83 %; RBC MORPH NORMAL
[2023-08-28 16:46] LABS: GLUCOSE 83 MG/DL (70-105); TOTAL PROTEIN 8.1 GM/DL (6.4-8.2)
[2023-08-28 16:48] LABS: BILIRUBIN,TOTAL 0.4 MG/DL (0.1-1.0); CARBON DIOXIDE 21 MMOL/L (21-32)
[2023-08-28 16:50] LABS: ALKALINE PHOSPHATASE 80 U/L (40-136); CREATININE SERUM 0.92 MG/DL (0.60-1.30); GFR ESTIMATED 85
[2023-08-28 16:51] LABS: BUN/CREATININE RATIO 11
[2023-08-28 16:53] LABS: ALANINE AMINOTRANSFERASE 98 U/L (0-55)
--- NOTE | 2023-08-28 17:11 | Diagnostic Imaging Report ---
INDICATION: Right knee pain. FINDINGS: Three views of the right knee show no fracture, dislocation or other acute abnormality. IMPRESSION: Unremarkable right knee. No change compared to exam dated 07/08/2023. Dictated by: Dictated on workstation # [id number]
--- NOTE | 2023-08-28 17:12 | Diagnostic Imaging Report ---
PROCEDURE: US right lower extremity venous. TECHNIQUE: Multiple real-time grayscale images were obtained over the right lower extremity in various projections. Additional spectral analysis and color Doppler duplex images were also obtained. INDICATION: Right leg pain. FINDINGS: The veins of the right leg have good color, filling and compressibility. There is phasic flow and a normal response to augmentation. IMPRESSION: Negative venous Doppler right leg. Dictated by: Dictated on workstation # [id number]
[2023-08-28] MEDS ORDERED: fentaNYL INJECTION 100 MCG/2 ML VIAL IVP STA (17:13)
[2023-08-28] MEDS ORDERED: GABAPENTIN 300 MG CAPSULE PO ONE (17:15)
[2023-08-28] MEDS ORDERED: GABA300C PO (17:42)
[2023-08-28] MEDS ORDERED: CEPH500T PO (17:42)
[2023-08-28 17:50] VITALS: BP 136/63
== END 2023-08-28 17:50 | disposition home or self-care (01) ==
LOC: EDUNIT# 15:45 → ER 15:48
DX: L03.115 Cellulitis of right lower limb (principal); S80.01XA Contusion of right knee, initial encounter; V89.2XXA Person injured in unspecified motor-vehicle accident, traffic, initial encounter; Y92.410 Unspecified street and highway as the place of occurrence of the external cause
CPT/HCPCS: 36415; 73562; 80053; 85007; 85027; 85652; 86141